=== PATIENT | male | born 1990 | race Two or more races ===

== ENCOUNTER 2017-01-09 09:46 | Emergency (ER) | payer OTHER ==
[~2017-01-09] VITALS: Ht 180.3 cm; Wt 81.8 kg
[2017-01-09 09:54] VITALS: BP 155/92; PULSE 95; RESP 18; O2SAT 99
--- NOTE | 2017-01-09 10:05 | ED.REPORT ---
HPI-Overdose/Alcohol Toxicity Date of Service Jan 09, 2017 ED Provider: Eduar Gonzalez MD Pt is a 26 y/o male presenting to the ED for detox from IV heroin use. The patient went to [facility] this morning and they told him to come here for medical clearance. His last use was 22:00 last night. He was previously clean for 5 years and began to use again 1 year ago. He has been using about 0.5 grams each day. The patient was prescribed Suboxone previously with good relief. He denies any other illicit drug use, cigarette use, or alcohol use. He takes no prescription medications. Withdrawal symptoms at this moment include nausea and vomiting. Pt denies any other symptoms. Nursing Notes Stated Complaint: DETOX Chief Complaint: Substance Abuse Nursing Notes Reviewed: Yes Allergies: Uncoded Allergies: LIQUID VENTOLYN (Allergy, Unknown, 01/09/17) Scheduled Buprenorphine HCl/Naloxone HCl (Suboxone 8 mg-2 mg Sl Film) 1 Each Film 1 EACH SL DAILY Miscellaneous Medications ([None]) General Time Seen by Provider: 10:10 Chief Complaint Other (heroin withdrawal) Hx Obtained From: Patient Arrived By: Walk-in Onset Occurred: 5 - 8 hours ago Symptom Duration: Since onset Progression Since Onset: Unchanged Severity: Current: No pain currently Severity: Maximum: No pain Similar Sx Previous: Yes Past Medical History Past Medical History IV drug abuse Past Surgical History None reported Smoking History Never Smoker Social History Heroin Alcohol Use: Denies alcohol use Drug Use: IV drugs, THC Ambulatory Status Independent Review of Systems Constitutional: Denies: Chills, Fever GI: Reports: Nausea, Vomiting Complete sys rev & neg: except as marked. Physical Exam Initial Vital Signs Vital Signs (First) Date Time Temp Pulse Resp B/P Pulse Ox O2 Delivery O2 Flow Rate FiO2 01/09/17 09:54 36.4 95 18 155/92 99 Room Air Initial VS: Reviewed, Vital signs normal Head / Eyes: Atraumatic, Normocephalic, PERRL ENT: Mucous membranes moist, Conjunctiva normal, No scleral icterus Neck: Supple, Full range of motion Extremities: Vascular intact, Neuro intact, No swelling, No tenderness General/Constitutional: Awake, Alert, No acute distress, Cooperative, Not toxic appearing Behavior: Positive: Anxious, Tearful Respiratory / Chest: Atraumatic, Breath sounds NL, Breath sounds = bilat, No respiratory distress, No rales, No rhonchi, No wheezing, No retractions, No stridor, No chest tenderness, No chest wall deformity, No crepitus Cardiovascular: Heart rate NL, Regular rhythm, Heart sounds NL, No gallop, No murmurs, No rubs, Cap refill not delayed, Peripheral circulation NL Abdomen: Atraumatic, Soft Neurologic: Oriented X3, Speech NL, No motor deficits, No sensory deficits, Memory NL Psychiatric: Mood NL, Not suicidal, Not homicidal Abnormal Mood/Affect: Positive: Anxious Skin: Atraumatic, Color NL, No rash, Warm Color / Condition: Positive: Diaphoresis present Interpretation & Diagnostics Lab Results Interpretation Test 01/09/17 10:25 Re-Eval/Medical Decision Re-Evaluation/Progress : Time of Eval: 10:16 )( Re-Eval Psychiatric: No danger to self, No danger to others, No suicidal ideation, No homicidal ideation Re-Evaluation/Progress Note: Pt rechecked. Discharged upon initial interview. Counseled Regarding: Diagnosis, Need for follow-up, When/why to return to ED Discharge & Departure Impression: Primary Impression: Opioid use disorder, severe, in controlled environment, dependence Additional Impression: Heroin withdrawal )( Condition at Discharge: No danger to self, No danger to others, No suicidal ideation, No homicidal ideation, Clear for drug rehab Disposition: Home Discharge Condition All VS Reviewed: Yes Condition: Stable Patient Instructions: Buprenorphine/Naloxone (By mouth), Narcotic Abuse (ED) Additional Instructions: Call [facility] appointment next week. Take your first dose of Suboxone tonight. Then take it every morning thereafter. Scribe Attestation Portions of this note were transcribed by Nader Thomas. I, Dr. Gonzalez personally performed the history, physical exam and medical decision-making; I reviewed and confirmed the accuracy of the information in the transcribed note. Signed by Nader Thomas and Jeni Grier, 01/09/17 - 1100 Eduar Gonzalez MD Jan 09, 2017 10:05 NADER THOMAS Jan 09, 2017 10:17
[2017-01-09] MEDS ORDERED: BUPR1FIL3 SL (10:38)
== END 2017-01-09 10:41 | disposition home or self-care (01) ==
LOC: SED 09:46
DX: F11.23 Opioid dependence with withdrawal (principal); Z88.8 Allergy status to other drugs, medicaments and biological substances